=== PATIENT | male | born 1950 | race Caucasian/White ===

== ENCOUNTER 2023-12-27 09:28 | Day surgery (SDC) | payer MEDICARE, OTHER ==
[~2023-12-27] VITALS: Ht 172.7 cm; Wt 96.2 kg
[~2023-12-27 09:28] MED LIST: ALBU8.5H INH; BACITRACIN OINTMENT 30GM TUBE As Ordered ONE; BREO1INH INH; D 1010004 PO; DULO1CAP6 PO; LEVO100T5 PO; LISI30TA4 PO; ROSU20TA61 PO; SEMA0.257 SC; SYNJ1TAB13 PO; TADA10TA PO; TAMS1CAP17 PO
[2023-12-27] MEDS ORDERED: LR 1,000 ML IV SCH ×2 (10:50→13:55)
[2023-12-27] MEDS ORDERED: propofoL 200 MG/20 ML VIAL As Ordered ONE (12:12)
[2023-12-27] MEDS ORDERED: LIDOCAINE 2% 100MG/5ML SDV (FOR ANES.) As Ordered ONE (12:12)
[2023-12-27] MEDS ORDERED: ONDANSETRON 4MG 2ML VIAL As Ordered ONE (12:12)
[2023-12-27] MEDS ORDERED: fentaNYL 100 MCG/2 ML INJECTION As Ordered ONE (12:12)
[2023-12-27] MEDS ORDERED: KETOROLAC 60MG 2ML VIAL As Ordered ONE (12:13)
[2023-12-27] MEDS: ceFAZolin SOD 2 GM in IV 1 EA IV ONE (12:39)
[2023-12-27] MEDS ORDERED: ACETAMINOPHEN 1000MG 100ML IV BAG As Ordered ONE (12:44)
[2023-12-27] MEDS ORDERED: GLYCOPYRROLATE INJ 0.2 MG/ML 2 ML VIAL As Ordered ONE (13:04)
[2023-12-27] MEDS ORDERED: fentaNYL 100 MCG/2 ML INJECTION IV PRN (13:55)
[2023-12-27] MEDS ORDERED: ONDANSETRON 4MG 2ML VIAL IV PRN (13:55)
[2023-12-27] MEDS ORDERED: OXYC1TAB23 PO (14:15)
[2023-12-27] MEDS ORDERED: PERCOCET 5MG/325MG TAB PO PRN (14:40)
[2023-12-27 15:05] VITALS: BP 132/73; TEMP 97.4; O2SAT 96
== END 2023-12-27 15:54 | disposition home or self-care (01) ==
LOC: M SDC 09:28
PROVIDERS: ATTEND Urology
DX: N47.1 Phimosis (principal); N40.0 Benign prostatic hyperplasia without lower urinary tract symptoms; E11.9 Type 2 diabetes mellitus without complications; E03.9 Hypothyroidism, unspecified; I10 Essential (primary) hypertension; J44.9 Chronic obstructive pulmonary disease, unspecified; G47.30 Sleep apnea, unspecified; Z79.899 Other long term (current) drug therapy; Z79.890 Hormone replacement therapy; Z79.85 Long-term (current) use of injectable non-insulin antidiabetic drugs; Z79.51 Long term (current) use of inhaled steroids; Z79.84 Long term (current) use of oral hypoglycemic drugs; Z85.6 Personal history of leukemia
CPT/HCPCS: 54161; 88304; J0131; J0690; J1596; J2405; J3010